=== PATIENT | male | born 1995 | race Caucasian/White ===

== ENCOUNTER 2017-10-28 10:12 | Emergency (ER) | payer BC ==
[2017-10-28 10:17] VITALS: BP 131/87
[2017-10-28] MEDS ORDERED: Famotidine 20 MG/2 ML SDV IVPUSH ONE (10:22)
[2017-10-28] MEDS ORDERED: Pantoprazole 40 MG Vial IVPUSH ONE (10:22)
--- NOTE | 2017-10-28 10:29 | EDM.PDOC ---
ED HPI GENERAL MEDICAL PROBLEM - General Chief Complaint: Abdominal Pain Stated Complaint: abdominal pain Time Seen by Provider: 10/28/17 10:15 Source of Information: Reports: Patient, Old Records ([facility] chart/EMR) History Limitations: Reports: No Limitations - History of Present Illness INITIAL COMMENTS - FREE TEXT/NARRATIVE: Patient was brought to the emergency room via private automobile by his father for evaluation of 10/10 left sided abdominal cramping and sharp pain with symptoms starting at about 7 AM this morning. His last bowel movement was apparently normal this morning with 1000 mg of Tylenol taken at about 8 AM this morning with no improvement of his symptoms. He did eat some pheasant yesterday evening at about 20:30 hours with some anorexia this morning, however adequate oral fluid intake to this point and no oral intake since yesterday evening as above.. He has had some nonspecific abdominal complaints in the past with no recent history of food poisoning, known exposure to infection, etc. No recent history of other abdominal pain, heartburn, diarrhea, melena, gross hematochezia , or any food intolerance, including fatty foods, etc.. Patient denies any current nausea, however one small emesis at about 08:30 a.m. this morning with no hematemesis, etc. He also complains of some possible mild dysuria this morning with no gross hematuria, colic, etc. The patient also denies any recent fever, cough, wheezing, dyspnea, etc.. The patient denies any chest pain/ pressure, heart flutter, dizziness, orthostasis, orthopnea, diaphoresis, paresthesias, recent decreased exercise tolerance, or any other anginal-type symptoms. Onset: Today, Gradual Onset Date: 10/28/17 Onset Time: 07:00 Duration: Constant, Getting Worse Location: Reports: Abdomen. Denies: Head, Face, Neck, Chest, Back, Pelvis, Upper Extremity, Left, Upper Extremity, Right, Lower Extremity, Left, Lower Extremity, Right, Radiates to Quality: Reports: Same as Previous Episode, Sharp Severity: Severe Improves with: Reports: None Worsens with: Reports: None Context: Reports: Other (As above). Denies: Sick Contact, Trauma Associated Symptoms: Denies: Confusion, Chest Pain, Cough, Diaphoresis, Fever/ Chills, Headaches, Loss of Appetite, Malaise, Nausea/Vomiting, Rash, Shortness of Breath, Syncope, Weakness Treatments FIELDWORK COORDINATOR: Reports: Acetaminophen (As above) Left Middle Abdominal Pain Score (Numeric/FACES): 10 - Related Data Allergies Allergy/AdvReac Type Severity Reaction Status Date / Time pollen extracts Allergy Sneezing Verified 10/28/17 10:14 Home Meds: Home Meds . [No Known Home Meds] 10/10/15 [History] Past Medical History HEENT History: Reports: Allergic Rhinitis, Impaired Vision, Other (See Below). Denies: Cataract, Glaucoma, Hard of Hearing, Macular Degeneration, Retinal Detachment Other HEENT History: He wears glasses. Seasonal allergies. Cardiovascular History: Reports: Arrhythmia, Syncope, Other (See Below). Denies : Afib, Aneurysm, Bacterial Endocarditis, Blood Clots/VTE/DVT, CAD, Heart Failure, Heart Murmur, High Cholesterol, Hypertension, [place], PVD Other Cardiovascular History: Sinus arrhythmia. Syncopal episode on 02/28/2000. Respiratory History: Reports: None. Denies: Asthma, COPD, Intubation, Difficult , Intubation, Previous, PE, Pneumothorax, Pulmonary Fibrosis, Sleep Apnea Gastrointestinal History: Reports: Jaundice, PUD, Other (See Below). Denies: Celiac Disease, Cholelithiasis, Chronic Constipation, Chronic Diarrhea, Colon Polyp, Fecal Incontinence, Gastritis, GERD, GI Bleed, Hepatitis, Inflammatory Bowel Disease, Irritable Bowel Syndrome, Pancreatitis Other Gastrointestinal History: jaundice. Gilbert's syndrome. Genitourinary History: Reports: None. Denies: Acute Renal Failure, BPH, Chronic Renal Insuffiency, Renal Calculus, STD, Urinary Incontinence, UTI, Recurrent Musculoskeletal History: Reports: None. Denies: Amputation, Arthritis, Back Pain, Chronic, Fracture, Gout, Neck Pain, Chronic, Osteoarthritis, Osteoporosis , RA, SLE Neurological History: Reports: None. Denies: CVA, Headaches, Chronic, Head Trauma, Migraines, MS, Parkinson's, Seizure, Speech Problems, TIA Psychiatric History: Reports: None. Denies: Abuse, Victim of, ADD, ADHD, Addiction, Anxiety, Dementia, Depression, Psych Hospitalization(s), PTSD, Suicide Attempt, Suicidal Ideation Endocrine/Metabolic History: Reports: None. Denies: Diabetes, Type I, Diabetes , Type II, Diabetes Mellitus, Type 3c, Hypothyroidism, IDDM Hematologic History: Reports: None. Denies: Anemia, Blood Transfusion(s), Iron Deficiency Immunologic History: Denies: None, AIDS, HIV, SLE Oncologic (Cancer) History: Reports: None. Denies: Basal Cell Carcinoma, Hodgkin's Lymphoma, Leukemia, Lymphoma, Malignant Melanoma, Non-Hodgkin's Lymphoma, Squamous Cell Carcinoma Dermatologic History: Reports: None. Denies: Eczema, Psoriasis - Infectious Disease History Infectious Disease History: Reports: None. Denies: C-Difficile, Chicken Pox, Measles, Meningitis, Mononucleosis, MRSA, Mumps, Pertussis (Whooping Cough), Rheumatic Fever, Rubella, Scarlet Fever, Shingles, TB, VRE - Past Surgical History Head Surgeries/Procedures: Reports: None HEENT Surgical History: Reports: None. Denies: Adenoidectomy, Eye Surgery, Laser Surgery, LASIK, Myringotomy w Tube(s), Naso-Sinus Surgery, Oral Surgery, Tonsillectomy Cardiovascular Surgical History: Reports: None. Denies: Varicose Respiratory Surgical History: Reports: None. Denies: Thoracentesis GI Surgical History: Reports: None. Denies: Appendectomy, Cholecystectomy, Colonoscopy, EGD, Hernia, Abdominal, Hernia, Inguinal, Hernia Repair/Other Male Surgical History: Reports: Circumcision, Other (See Below). Denies: Vasectomy Other Male Surgeries/Procedures: Circumcision as an Endocrine Surgical History: Reports: None. Denies: Thyroid Biopsy Neurological Surgical History: Reports: None. Denies: C-Spine, Discectomy, Laminectomy, Lumbar Spine, Sacral Spine, Spinal Fusion, Thoracic Spine, Vertebroplasty Musculoskeletal Surgical History: Reports: None. Denies: Carpal Tunnel, Ganglion Cyst, Joint Replacement, ORIF, Shoulder Surgery Oncologic Surgical History: Reports: None Dermatological Surgical History: Reports: None - Past Imaging History Past Imaging History: Reports: Ultrasound (Abdominal ultrasound on 08/17/09) Social & Family History - Family History Family Medical History: Noncontributory GI: Reports: Colon Polyps, Diverticulitis, Diverticulosis, Other (See Below). Denies: Celiac Disease, Cholelithiasis, GERD, GI bleed, Inflammatory Bowel Disease, Irritable Bowel Syndrome, PUD Other GI Family History: Father with history of diverticulitis and unknown type of colonic polyp. Paternal grandparents with diverticulosis. : Reports: Renal Calculus, Other (See Below) Other Family History: Mother with history of urolithiasis. - Tobacco Use Smoking Status *Q: Never Smoker Tobacco Use Within Last Twelve Months: No Used Tobacco, but Quit: No Smoking Cessation Information Provided To Patient: No Second Hand Smoke Exposure: Yes Source of Second Hand Smoke Exposure: Father's significant other Second Hand Smoke Education Provided: Yes - Caffeine Use Caffeine Use: Reports: Soda (1 soda 3 times per week), Tea (One glass of tea 3 times per week). Denies: Coffee, Energy Drinks - Alcohol Use Alcohol Use History: Yes Days Per Week of Alcohol Use: 1 Number of Drinks Per Day: 1 Number of Drinks Per Day Comment: Usually beer. No previous DWIs, problems with alcohol abuse, etc. Total Drinks Per Week: 1 Alcohol Use in Last Twelve Months: Yes Alcohol Use Frequency: Weekly - Recreational Drug Use Recreational Drug Use: No Drug Use in Last 12 Months: No Recreational Drug Type: Denies: Amphetamines (Speed), Cocaine, Heroin, Inhalants (Glues, Solvents, Aerosols), LSD (Acid), Marijuana/Hashish, Methamphetamine, Morphine, Oxycodone - Living Situation & Occupation Living situation: Reports: Single (No children), with Family (Father and father' s significant other) Occupation: Employed ([employer]) ED ROS GENERAL - Review of Systems Review Of Systems: ROS reveals no pertinent complaints other than HPI. ED EXAM, GI/ABD - Physical Exam Exam: See Below Exam Limited By: No Limitations General Appearance: Alert, WD/WN, No Apparent Distress Eyes: Bilateral: Normal Appearance (No nystagmus. Patient wearing glasses), EOMI (PERRLA) Ears: Normal External Exam, Normal Canal, Hearing Grossly Normal, Normal TMs Nose: Normal Inspection, Normal Mucosa, No Blood Throat/Mouth: Normal Inspection, Normal Lips, Normal Teeth, Normal Gums, Normal Oropharynx, Normal Voice, No Airway Compromise. No: Dysphagia, Perioral Cyanosis Head: Atraumatic, Normocephalic. No: Facial Swelling, Facial Tenderness, Sinus Tenderness Neck: Normal Inspection, Supple, Non-Tender, Full Range of Motion. No: Lymphadenopathy (L), Lymphadenopathy (R), Thyromegaly Respiratory/Chest: No Respiratory Distress, Lungs Clear, Normal Breath Sounds, No Accessory Muscle Use, Chest Non-Tender. No: Pleural Rub, Retractions Cardiovascular: Normal Peripheral Pulses, Regular Rate, Rhythm, No Edema, No Gallop, No JVD, No Murmur, No Rub. No: Gallop/S3, Gallop/S4, Friction Rub GI/Abdominal Exam: Normal Bowel Sounds, Soft, No Organomegaly, No Distention, No Abnormal Bruit, No Mass, Pelvis Stable, Tender (Mild left mid to lower palpation pain). No: Guarding, Rebound (Male) Exam: Deferred Rectal (Males) Exam: Normal Exam, Normal Rectal Tone, Prostate Normal, Heme - Stool. No: Tenderness (No Francisco space tenderness) Back Exam: Normal Inspection, Full Range of Motion. No: CVA Tenderness (L), CVA Tenderness (R), Muscle Spasm Extremities: Normal Inspection, Normal Range of Motion, Non-Tender, No Pedal Edema, Normal Capillary Refill. No: Jil's Sign Neurological: Alert, Oriented, CN II-XII Intact, Normal Cognition, Normal Gait, Normal Reflexes, No Motor/Sensory Deficits Psychiatric: Normal Affect, Normal Mood Skin Exam: Warm, Dry, Intact, Normal Color, No Rash. No: Diaphoretic, Jaundice , Pallor, Wound/Incision Lymphatic: No Adenopathy Course - Vital Signs Last Recorded V/S: Last Vital Signs Temp Pulse 55 L 10/28/17 10:14 Resp 18 10/28/17 10:14 BP 131/87 10/28/17 10:14 Pulse Ox 100 10/28/17 10:14 Vital Signs - 24 hr 10/28/17 10:14 Pulse, 55 L Peripheral [ Pulse Oximetry] Respiratory 18 Rate Blood Pressure 131/87 [Right Upper Arm] O2 Sat by Pulse 100 Oximetry - Orders/Labs/Meds Orders: Active Orders 24 hr Category Date Time Status Peripheral IV Care [RC] . DIRECTED Care 10/28/17 10:22 Active Nothing Per Oral Diet [DIET] Diet 10/28/17 Breakfast Active Abdomen Pelvis wo Cont [CT] Stat Exams 10/28/17 12:36 Taken Abdomen Series w Chest 1V [CR] Stat Exams 10/28/17 10:22 Taken CULTURE URINE [RM] Stat Lab 10/28/17 12:05 Received OCCULT BLOOD DIAGNOSTIC [OP] Stat Lab 10/28/17 10:29 Ordered UA W/MICROSCOPIC [URIN] Stat Lab 10/28/17 12:05 Ordered Sodium Chloride 0.9% [Saline Flush] Med 10/28/17 10:22 Active 10 ml FLUSH ASDIRECTED PRN Obtain Past Medical Record [OM.PC] Urgent Oth 10/28/17 10:22 Active Peripheral IV Insertion Adult [OM.PC] Stat Oth 10/28/17 10:22 Ordered Resuscitation Status Stat Resus Stat 10/28/17 10:22 Ordered Medication Orders Sodium Chloride (Saline Flush) 10 ml FLUSH ASDIRECTED PRN PRN Reason: Keep Vein Open Last Admin: 10/28/17 14:02 Dose: 10 ml Admin: 10/28/17 10:46 Dose: 10 ml Labs: Laboratory Tests 10/28/17 10/28/17 10/28/17 Range/Units 10:36 10:36 10:36 WBC 7.1 (4.0-10.2) K/uL RBC 5.01 (4.33-5.41) M/uL Hgb 15.3 (13.1-16.8) g/dL Hct 42.2 (39.0-49.0) % MCV 84.2 (84.0-98.0) fL MCH 30.5 (28.2-33.3) pg MCHC 36.3 H (31.7-36.0) g/dL RDW 13.3 (11.2-14.1) % Plt Count 211 (150-350) K/uL Neut % (Auto) 77.5 (45.0-80.0) % Lymph % (Auto) 15.1 (10.0-50.0) % [place] % (Auto) 5.8 (2.0-14.0) % Eos % (Auto) 1.3 (0.0-5.0) % Baso % (Auto) 0.3 (0.0-2.0) % Neut # (Auto) 5.48 (1.40-7.00) K/uL Lymph # (Auto) 1.07 (0.50-3.50) K/uL [place] # (Auto) 0.41 (0.00-1.00) K/uL Eos # (Auto) 0.09 (0.00-0.50) K/uL Baso # (Auto) 0.02 (0.00-0.20) K/uL PT 11.5 (9.8-11.7) SEC INR 1.1 APTT 28.9 (22.1-29.8) SEC Sodium (136-145) mmol/L Potassium (3.5-5.1) mmol/L Chloride (98-107) mmol/L Carbon Dioxide (21.0-32.0) mmol/L BUN (7-18) mg/dL Creatinine (0.51-1.17) mg/dL Est Cr Clr Drug Dosing mL/min Estimated GFR (MDRD) mL/min Glucose (74-106) mg/dL Lactic Acid (0.4-2.0) mmol/L Uric Acid (2.6-7.2) mg/dL Calcium (8.5-10.1) mg/dL Magnesium (1.8-2.4) mg/dL Total Bilirubin (0.2-1.0) mg/dL Direct Bilirubin (0.0-0.2) mg/dL Indirect Bilirubin AST (15-37) U/L ALT (12-78) U/L Alkaline Phosphatase (46-116) IU/L Total Protein (6.4-8.2) g/dL Albumin (3.4-5.0) g/dL Amylase 46 (25-115) U/L Lipase (73-393) U/L Specimen Type Urine Color Urine Appearance Urine pH (5.0-9.0) Ur Specific [place] (1.005-1.030) Urine Protein (NEGATIVE) mg/dL Urine Glucose (UA) (NEGATIVE) mg/dL Urine Ketones (NEGATIVE) mg/dL Urine Occult Blood (NEGATIVE) Urine Nitrite (NEGATIVE) Urine Bilirubin (NEGATIVE) Urine Urobilinogen (0.2-1.0) E.U./dL Ur Leukocyte Esterase (NEGATIVE) Urine RBC /HPF Urine WBC /HPF Ur Epithelial Cells /LPF Urine Bacteria (NONE TO FEW) /HPF Urine Mucus (NEGATIVE) /LPF 10/28/17 10/28/17 10/28/17 Range/Units 10:36 10:36 10:36 WBC (4.0-10.2) K/uL RBC (4.33-5.41) M/uL Hgb (13.1-16.8) g/dL Hct (39.0-49.0) % MCV (84.0-98.0) fL MCH (28.2-33.3) pg MCHC (31.7-36.0) g/dL RDW (11.2-14.1) % Plt Count (150-350) K/uL Neut % (Auto) (45.0-80.0) % Lymph % (Auto) (10.0-50.0) % [place] % (Auto) (2.0-14.0) % Eos % (Auto) (0.0-5.0) % Baso % (Auto) (0.0-2.0) % Neut # (Auto) (1.40-7.00) K/uL Lymph # (Auto) (0.50-3.50) K/uL [place] # (Auto) (0.00-1.00) K/uL Eos # (Auto) (0.00-0.50) K/uL Baso # (Auto) (0.00-0.20) K/uL PT (9.8-11.7) SEC INR APTT (22.1-29.8) SEC Sodium 137 (136-145) mmol/L Potassium 3.5 (3.5-5.1) mmol/L Chloride 101 (98-107) mmol/L Carbon Dioxide 20.1 L (21.0-32.0) mmol/L BUN 17 (7-18) mg/dL Creatinine 1.17 (0.51-1.17) mg/dL Est Cr Clr Drug Dosing 109.62 mL/min Estimated GFR (MDRD) > 60 mL/min Glucose 112 H (74-106) mg/dL Lactic Acid 2.7 H (0.4-2.0) mmol/L Uric Acid 5.2 (2.6-7.2) mg/dL Calcium 9.8 (8.5-10.1) mg/dL Magnesium 1.8 (1.8-2.4) mg/dL Total Bilirubin 2.8 H 2.8 H (0.2-1.0) mg/dL Direct Bilirubin 0.3 H (0.0-0.2) mg/dL Indirect Bilirubin 2.5 AST 20 (15-37) U/L ALT 27 (12-78) U/L Alkaline Phosphatase 91 (46-116) IU/L Total Protein 7.9 (6.4-8.2) g/dL Albumin 4.5 (3.4-5.0) g/dL Amylase (25-115) U/L Lipase 99 (73-393) U/L Specimen Type Urine Color Urine Appearance Urine pH (5.0-9.0) Ur Specific [place] (1.005-1.030) Urine Protein (NEGATIVE) mg/dL Urine Glucose (UA) (NEGATIVE) mg/dL Urine Ketones (NEGATIVE) mg/dL Urine Occult Blood (NEGATIVE) Urine Nitrite (NEGATIVE) Urine Bilirubin (NEGATIVE) Urine Urobilinogen (0.2-1.0) E.U./dL Ur Leukocyte Esterase (NEGATIVE) Urine RBC /HPF Urine WBC /HPF Ur Epithelial Cells /LPF Urine Bacteria (NONE TO FEW) /HPF Urine Mucus (NEGATIVE) /LPF 10/28/17 Range/Units 12:05 WBC (4.0-10.2) K/uL RBC (4.33-5.41) M/uL Hgb (13.1-16.8) g/dL Hct (39.0-49.0) % MCV (84.0-98.0) fL MCH (28.2-33.3) pg MCHC (31.7-36.0) g/dL RDW (11.2-14.1) % Plt Count (150-350) K/uL Neut % (Auto) (45.0-80.0) % Lymph % (Auto) (10.0-50.0) % [place] % (Auto) (2.0-14.0) % Eos % (Auto) (0.0-5.0) % Baso % (Auto) (0.0-2.0) % Neut # (Auto) (1.40-7.00) K/uL Lymph # (Auto) (0.50-3.50) K/uL [place] # (Auto) (0.00-1.00) K/uL Eos # (Auto) (0.00-0.50) K/uL Baso # (Auto) (0.00-0.20) K/uL PT (9.8-11.7) SEC INR APTT (22.1-29.8) SEC Sodium (136-145) mmol/L Potassium (3.5-5.1) mmol/L Chloride (98-107) mmol/L Carbon Dioxide (21.0-32.0) mmol/L BUN (7-18) mg/dL Creatinine (0.51-1.17) mg/dL Est Cr Clr Drug Dosing mL/min Estimated GFR (MDRD) mL/min Glucose (74-106) mg/dL Lactic Acid (0.4-2.0) mmol/L Uric Acid (2.6-7.2) mg/dL Calcium (8.5-10.1) mg/dL Magnesium (1.8-2.4) mg/dL Total Bilirubin (0.2-1.0) mg/dL Direct Bilirubin (0.0-0.2) mg/dL Indirect Bilirubin AST (15-37) U/L ALT (12-78) U/L Alkaline Phosphatase (46-116) IU/L Total Protein (6.4-8.2) g/dL Albumin (3.4-5.0) g/dL Amylase (25-115) U/L Lipase (73-393) U/L Specimen Type Urinvoid Urine Color Dark yellow Urine Appearance Clear Urine pH 8.0 (5.0-9.0) Ur Specific [place] 1.015 (1.005-1.030) Urine Protein Negative (NEGATIVE) mg/dL Urine Glucose (UA) Negative (NEGATIVE) mg/dL Urine Ketones 15 H (NEGATIVE) mg/dL Urine Occult Blood Large H (NEGATIVE) Urine Nitrite Negative (NEGATIVE) Urine Bilirubin Negative (NEGATIVE) Urine Urobilinogen 0.2 (0.2-1.0) E.U./dL Ur Leukocyte Esterase Negative (NEGATIVE) Urine RBC 10-20 H /HPF Urine WBC 0-5 /HPF Ur Epithelial Cells Occasional /LPF Urine Bacteria Few (NONE TO FEW) /HPF Urine Mucus Few H (NEGATIVE) /LPF Urine specimen set up for culture and sensitivity Microbiology 10/28/17 10:29 Stool Occult Blood (BROWN) - Final Stool / Feces NEGATIVE OCCULT BLOOD Meds: Medications Generic Name Dose Route Start Last Admin Trade Name Freq PRN Reason Stop Dose Admin Sodium Chloride 10 ml 10/28/17 10:22 10/28/17 14:02 Saline Flush FLUSH 10 ml ASDIRECTED PRN Administration Keep Vein Open Discontinued Medications Generic Name Dose Route Start Last Admin Trade Name Freq PRN Reason Stop Dose Admin Famotidine 40 mg 10/28/17 10:22 10/28/17 10:46 Pepcid IVPUSH 10/28/17 10:23 40 mg ONETIME ONE Administration Lactated Ringer's 1,000 mls @ 999 mls/hr 10/28/17 10:53 10/28/17 10:56 Ringers, Lactated IV 10/28/17 11:53 999 mls/hr .BOLUS ONE Administration Ketorolac Tromethamine 30 mg 10/28/17 13:35 10/28/17 14:00 Toradol IVPUSH 10/28/17 13:36 30 mg ONETIME ONE Administration Pantoprazole Sodium 40 mg 10/28/17 10:22 10/28/17 10:46 Protonix Iv IVPUSH 10/28/17 10:23 40 mg ONETIME ONE Administration Tamsulosin HCl 0.4 mg 10/28/17 13:36 10/28/17 14:01 Flomax PO 10/28/17 13:37 0.4 mg ONETIME ONE Administration - Radiology Interpretation Free Text/Narrative:: Acute abdominal x-rays shows evidence of possible pulmonary obstructive disease with no cardiomegaly, pneumothorax, CHF, pulmonary infiltrates, etc. Some mild to moderate diffuse stool present with mild to moderate gaseous distention mostly in the transverse colon with no free air, fluid levels, ileus, or obstruction. No apparent appendicolith , intra-abdominal calcifications, etc. Telephone consultation at 13:34 hours with the radiology department at [facility] with preliminary verbal report of CT scan of the abdomen and pelvis without contrast using stone protocol. Note evidence of a 4-5 millimeter distal left ureteral calcification at the UVJ with no significant hydronephrosis. CT Results Date: 10/28/17 CT Results Time: 13:34 Departure - Departure Time of Disposition: 14:30 Disposition: Home, Self-Care 01 Condition: Good Clinical Impression: Abdominal pain, Tobacco abuse counseling, [place] syndrome, Lactic acid increased, Urolithiasis - Discharge Information Instructions: Kidney Stones, Ketorolac injection, Renal Colic, [id number], Constipation, Adult, [id number], Pantoprazole injection, Abdominal Pain, Adult , [id number], Famotidine injection, Tamsulosin capsules, Steps to Quit Smoking Referrals: Booker Hough PA [Primary Care Provider] - Forms: ED Department Discharge Additional Instructions: 1. Followup with your regular provider in 2 days as directed for reevaluation and recommended repeat CBC, comprehensive metabolic panel, lactic acid level, and acute abdominal x-rays. Bring these discharge instructions with you to that visit. 2. Further GI and/or urological workup, including possible abdominal ultrasound , EGD, colonoscopy, etc., depending on your symptoms at follow-up. 3. [place] diet including encouragement of oral fluids such as sports drinks, etc. for 24-48 hours as directed. Advance to regular high fiber diet as tolerated thereafter. 4. Stop all tobacco exposure JAYESH as directed with counselling, information, etc. given 5. Strain all urine and bring stone to your regular provider or this facility as directed for further stone analysis. 6. Urine tests should be repeated at follow up visit in 10-14 days, if today's urine test proves positive with possible repeat urine culture,etc. at that time. Today's urine culture is pending with results in about 2-3 days. We will call you, if we need to change your therapy. 7. Immediately after this visit verify that your cellular telephone's voicemail has been activated and is empty. Also verify that your home telephone 's answering machine is operating properly and has space to receive messages. Note that it is sometimes necessary for us to be able to contact you at a later date to discuss your medical care. 8. Tylenol 650 mg by mouth every 4 hours and/or OTC ibuprofen 2-3 tabs by mouth every 6 hours with food as directed./needed. Next dose of ibuprofen in 6 hours as needed secondary to medications given in the emergency room. - Problem List & Annotations (1) Urolithiasis SNOMED Code(s): 56651504, 935813322 Code(s): N20.9 - URINARY CALCULUS, UNSPECIFIED Status: Acute Priority: High Current Visit: Yes Onset Date: 10/28/17 Annotation/Comment:: Newly diagnosed left sided urolithiasis by today's CT scan as above with no evidence of hydronephrosis, current UTI, etc. IV Toradol and oral Flomax given in the emergency room. Secondary to his stone being at the UVJ no further need for additional Flomax on an outpatient basis for the time being. No antibiotic therapy indicated with urine specimen set up for culture and sensitivity. Further urological work up, etc. depending on his clinical course. Patient should be able to pass this stone spontaneously without difficulty. Close follow -up by regular provider. Qualifiers: Urinary calculus location: ureter Qualified Code(s): N20.1 - Calculus of ureter (2) Abdominal pain SNOMED Code(s): 47191220 Code(s): R10.9 - UNSPECIFIED ABDOMINAL PAIN Status: Acute Priority: High Current Visit: Yes Onset Date: 10/28/17 Annotation/Comment:: Overall good results with treatment in the emergency room as above. Continue symptomatic relief for now with further GI workup depending on his clinical course. Despite newly diagnosed urolithiasis today note previous history of intermittent nonspecific abdominal pain and possible constipation as a contributive component to today's symptoms. Close follow-up by his regular provider as per discharge instructions. Qualifiers: Abdominal location: left lower quadrant Qualified Code(s): R10.32 - Left lower quadrant pain (3) [place] syndrome SNOMED Code(s): 62312869 Code(s): E80.4 - GILBERT SYNDROME Status: Chronic Priority: Medium Current Visit: Yes Annotation/Comment:: Known history of Gilbert's syndrome with negative previous abdominal ultrasound as below. Actually improved total bilirubin today. Continue to observe for now. (4) Lactic acid increased SNOMED Code(s): 74146064 Code(s): E87.2 - ACIDOSIS Status: Acute Priority: High Current Visit: Yes Onset Date: 10/28/17 Annotation/Comment:: No clinical evidence of sepsis , including no fever, leukocytosis, etc.. Observe for now. Close follow-up by regular provider as per discharge instructions. (5) Tobacco abuse counseling SNOMED Code(s): 546718761, 173536291, 179509331 Code(s): Z71.6 - TOBACCO ABUSE COUNSELING Status: Chronic Priority: Medium Current Visit: Yes Annotation/Comment:: Tobacco smoke exposure discussed. Tobacco cessation information provided. - Problem List Review Problem List Initiated/Reviewed/Updated: Yes - My Orders Last 24 Hours: My Active Orders 10/28/17 10:22 Peripheral IV Care [RC] . DIRECTED Abdomen Series w Chest 1V [CR] Stat Sodium Chloride 0.9% [Saline Flush] 10 ml FLUSH ASDIRECTED PRN Obtain Past Medical Record [OM.PC] Urgent Peripheral IV Insertion Adult [OM.PC] Stat Resuscitation Status Stat 10/28/17 10:29 OCCULT BLOOD DIAGNOSTIC [OP] Stat 10/28/17 12:05 CULTURE URINE [RM] Stat UA W/MICROSCOPIC [URIN] Stat 10/28/17 12:36 Abdomen Pelvis wo Cont [CT] Stat 10/28/17 Breakfast Nothing Per Oral Diet [DIET] - Assessment/Plan Last 24 Hours: My Active Orders 10/28/17 10:22 Peripheral IV Care [RC] . DIRECTED Abdomen Series w Chest 1V [CR] Stat Sodium Chloride 0.9% [Saline Flush] 10 ml FLUSH ASDIRECTED PRN Obtain Past Medical Record [OM.PC] Urgent Peripheral IV Insertion Adult [OM.PC] Stat Resuscitation Status Stat 10/28/17 10:29 OCCULT BLOOD DIAGNOSTIC [OP] Stat 10/28/17 12:05 CULTURE URINE [RM] Stat UA W/MICROSCOPIC [URIN] Stat 10/28/17 12:36 Abdomen Pelvis wo Cont [CT] Stat 10/28/17 Breakfast Nothing Per Oral Diet [DIET] Assessment:: As above Plan: As above. Extensive precautions were given to the patient, who is in agreement with the treatment plan. See Patient Instructions for further treatment and plan.
[2017-10-28] MEDS: Sodium Chloride 0.9% 10 ML Syringe FLUSH PRN ×2 (10:46→14:02)
[2017-10-28] MEDS ORDERED: Lactated Ringers 1,000 ML IV ONE (10:53)
[2017-10-28 10:59] LABS: CHLORIDE,CL 101 mmol/L (98-107); SODIUM,NA 137 mmol/L (136-145)
[2017-10-28] MEDS ORDERED: Ketorolac 30 MG/ML SDV IVPUSH ONE (13:35)
[2017-10-28] MEDS ORDERED: Tamsulosin 0.4 MG Cap.ER PO ONE (13:36)
== END 2017-10-28 14:30 | disposition home or self-care (01) ==
LOC: LL.ED 10:12
DX: N20.9 Urinary calculus, unspecified (principal); E80.4 Gilbert syndrome; E87.2 Acidosis; Z91.048 Other nonmedicinal substance allergy status; Z71.6 Tobacco abuse counseling
CPT/HCPCS: 36415; 74022; 74176; 80053; 81001; 82150; 82247; 82248; 82272; 83605; 83690; 83735; 84550; 85025; 85610; 85730; 87086; 96361; 96374; 96375; 99285; A9270; C9113; J1885; J7050; J7120; S0028